=== PATIENT | male | born 1950 | race Caucasian/White ===

== ENCOUNTER 2018-01-18 12:00 | Emergency (ER) | payer OTHER ==
[2018-01-18 12:12] VITALS: Ht 180.3 cm
[2018-01-18 13:12] VITALS: BP 113/80
== END 2018-01-18 13:12 | disposition home or self-care (01) ==
LOC: ED 12:00
DX: G89.29 Other chronic pain (principal); M25.512 Pain in left shoulder; M25.511 Pain in right shoulder; Z76.0 Encounter for issue of repeat prescription; I10 Essential (primary) hypertension; E78.00 Pure hypercholesterolemia, unspecified; K21.9 Gastro-esophageal reflux disease without esophagitis; Z88.8 Allergy status to other drugs, medicaments and biological substances